=== PATIENT | female | born 1995 | race Caucasian/White ===

== ENCOUNTER 2025-01-17 23:17 | Emergency (ER) | payer OTHER ==
[~2025-01-17] VITALS: Ht 157.5 cm; Wt 72.0 kg
[2025-01-17 23:24] VITALS: O2SAT 100
[2025-01-17 23:39] VITALS: BP 111/69; PULSE 77; RESP 18; TEMP 36.9; O2SAT 97
[2025-01-17 23:49] LABS: BASOPHILS % 0.5 % (0.0-2.0); EOSINOPHILS % 2.6 % (0.0-5.0); HEMATOCRIT. 37.9 % (36.0-48.0); HEMOGLOBIN. 12.7 g/dL (12.0-16.0); LYMPHOCYTES % 34.7 % (20.0-50.0); MEAN CORPUSCULAR HEMOGLOBIN 30.4 pg (28.0-32.0); MEAN CORPUSCULAR HGB CONC 33.5 g/dL (31.0-37.0); MEAN CORPUSCULAR VOLUME 90.6 fL (81.0-99.0); MEAN PLATELET VOLUME 7.8 fl (7.4-10.4); NEUTROPHILS % 57.2 % (40.0-76.0); PLATELET 256 x1000/uL (130-400); RED BLOOD CELL COUNT 4.18 mill/uL (4.2-5.4); RED CELL DISTRIBUTION WIDTH 13.8 % (11.6-14.6); WHITE BLOOD COUNT 8.5 x1000/uL (4.5-11.0)
[2025-01-18 00:25] LABS: CHLORIDE 104 mEq/L (98-107); POTASSIUM 3.7 mEq/L (3.5-5.1); SODIUM 139 mEq/L (136-145)
[2025-01-18 00:26] LABS: CALCIUM 9.3 mg/dL (8.7-10.4); CARBON DIOXIDE 28 mEq/L (21-32)
[2025-01-18 00:31] LABS: CREATININE 0.6 mg/dL (0.6-1.0); GLUCOSE 102 mg/dL (70-105); UREA NITROGEN BLOOD 11 mg/dL (9-23)
[2025-01-18 01:01] LABS: B-HCG QUANTITATIVE 4070 mIU/mL (<3)
== END 2025-01-18 02:29 | disposition home or self-care (01) ==
LOC: ER 23:17
DX: O26.891 Other specified pregnancy related conditions, first trimester (principal); O20.9 Hemorrhage in early pregnancy, unspecified; N93.9 Abnormal uterine and vaginal bleeding, unspecified; Z3A.01 Less than 8 weeks gestation of pregnancy
CPT/HCPCS: 36415; 76801; 80048; 84702; 85025; 86850; 86900; 99284

== ENCOUNTER 2025-01-22 14:22 | Emergency (ER) | payer OTHER ==
[~2025-01-22] VITALS: Ht 162.6 cm; Wt 54.0 kg
[2025-01-22 15:10] VITALS: O2SAT 100
[2025-01-22 15:40] LABS: BASOPHILS % 0.5 % (0.0-2.0); EOSINOPHILS % 2.7 % (0.0-5.0); HEMATOCRIT. 39.6 % (36.0-48.0); HEMOGLOBIN. 12.9 g/dL (12.0-16.0); LYMPHOCYTES % 36.1 % (20.0-50.0); MEAN CORPUSCULAR HEMOGLOBIN 29.9 pg (28.0-32.0); MEAN CORPUSCULAR HGB CONC 32.7 g/dL (31.0-37.0); MEAN CORPUSCULAR VOLUME 91.5 fL (81.0-99.0); MONOCYTES % 5.3 % (2.0-8.0); NEUTROPHILS % 55.4 % (40.0-76.0); PLATELET 245 x1000/uL (130-400); RED BLOOD CELL COUNT 4.33 mill/uL (4.2-5.4); RED CELL DISTRIBUTION WIDTH 13.6 % (11.6-14.6); WHITE BLOOD COUNT 5.8 x1000/uL (4.5-11.0)
[2025-01-22 15:57] LABS: B-HCG QUANTITATIVE 111 mIU/mL (<6)
[2025-01-22 16:01] LABS: CARBON DIOXIDE 28 mEq/L (21-32); CHLORIDE 104 mEq/L (98-107); POTASSIUM 3.9 mEq/L (3.5-5.1); SODIUM 141 mEq/L (136-145)
[2025-01-22 16:02] LABS: CALCIUM 9.6 mg/dL (8.7-10.4)
[2025-01-22 16:07] LABS: CREATININE 0.6 mg/dL (0.6-1.0); GLUCOSE 100 mg/dL (70-105); UREA NITROGEN BLOOD 8 mg/dL (9-23)
[2025-01-22 18:25] VITALS: BP 117/58; PULSE 71; RESP 16; TEMP 36.9; O2SAT 99
== END 2025-01-22 18:45 | disposition home or self-care (01) ==
LOC: ER 14:22
DX: O03.9 Complete or unspecified spontaneous abortion without complication (principal); Z3A.01 Less than 8 weeks gestation of pregnancy
CPT/HCPCS: 36415; 76801; 80048; 84702; 85025; 86850; 86900; 99284